=== PATIENT | female | born 1975 | race Caucasian/White ===

== ENCOUNTER 2022-02-25 08:57 | Emergency (ER) | payer OTHER ==
[2022-02-25 09:48] LABS: HEMOGLOBIN 10.9 gm/dl (12.3-15.3); RED BLOOD COUNT 4.38 M/UL (4.00-5.10); WHITE BLOOD COUNT 11.9 K/UL (4.5-11.0)
[2022-02-25] MEDS ORDERED: ZOFRAN ODT 4 MG4 MG PO (12:01)
[2022-02-25] MEDS ORDERED: OMNICEF 300 MG300 MG PO (12:01)
== END 2022-02-25 12:15 | disposition home or self-care (01) ==
LOC: ER1 08:57
PROVIDERS: Family Medicine
DX: N12 Tubulo-interstitial nephritis, not specified as acute or chronic (principal); G43.909 Migraine, unspecified, not intractable, without status migrainosus; Z20.822 Contact with and (suspected) exposure to COVID-19; Z79.01 Long term (current) use of anticoagulants
CPT/HCPCS: 0240U; 80053; 81001; 83605; 85025; 87040; 93005; 96374; 99284; J0696